=== PATIENT | female | born 1940 | race Caucasian/White ===

== ENCOUNTER → 2018-12-30 | Outpatient (CLI) | payer MEDICARE, OTHER ==
[2018-12-30 11:34] LABS: HEMATOCRIT 37.2 % (37.0-47.0); HEMOGLOBIN 11.7 g/dL (12.5-16.0); MEAN PLATELET VOLUME 9.7 fl (7.4-10.4); RED BLOOD COUNT 3.81 M/mm3 (4.10-5.30); RED CELL DISTRIBUTION WIDTH 14.3 % (11.5-14.5); WHITE BLOOD COUNT 7.2 K/mm3 (4.8-10.8)
[2018-12-30 11:39] LABS: ALBUMIN 3.7 g/dL (3.4-4.8); POTASSIUM 4.5 mmol/L (3.5-5.1)
[2018-12-30 11:40] LABS: CALCIUM 9.4 mg/dL (8.3-10.5)
[2018-12-30 11:41] LABS: TOTAL PROTEIN 6.9 g/dL (6.2-8.1)
[2018-12-30 11:43] LABS: TOTAL BILIRUBIN 0.4 mg/dL (0.2-1.2)
== END ==
LOC: LAB 11:16
PROVIDERS: Family Medicine
DX: I10 Essential (primary) hypertension (principal); D64.9 Anemia, unspecified